=== PATIENT | male | born 1965 ===

== ENCOUNTER 2017-12-18 15:11 | Emergency (ER) | payer OTHER ==
[2017-12-18 16:00] VITALS: BP 137/69; PULSE 69; RESP 16; TEMP 98.8; O2SAT 99
[2017-12-18] MEDS ORDERED: Sodium Chloride 0.9% 1,000 ML IV STA (16:24)
[2017-12-18] MEDS ORDERED: Alum-Mag Hydrox-Simethicone Susp (30 mL) PO STA (16:35)
--- NOTE | 2017-12-18 16:40 | ED PDOC ---
HPI: Abdomen Time Seen by Provider: 12/18/17 16:23 Chief Complaint (Nursing): Abdominal Pain Chief Complaint (Provider): Epigastric pain, 5 days History Per: Patient History/Exam Limitations: no limitations Onset/Duration Of Symptoms: Days Outside of [place] travel?: No Current Symptoms Are (Timing): Still Present Severity: Severe Pain Scale Rating Of: 9 Location Of Pain/Discomfort: Epigastric Additional Complaint(s): 52 yo male with no medical problems present with epigatric pain which wraps around both sides to the back for 5 days. Pt denies similar in the past. Pt denies N/V/D, SOB, chest pain or palpitations. Pt took motrin twice for pain but states it did not help. Pt smokes, reports drinking every weekend. Past Medical History Reviewed: Historical Data, Nursing Documentation, Vital Signs Vital Signs: Last Vital Signs Temp 98.8 F 12/18/17 15:57 Pulse 69 12/18/17 15:57 Resp 16 12/18/17 15:57 BP 137/69 12/18/17 15:57 Pulse Ox 99 12/18/17 17:09 - Medical History PMH: No Chronic Diseases Denies: Chronic Kidney Disease - Surgical History Surgical History: Hernia Repair (Right inguinal ) - Family History Family History: States: Unknown Family Hx - Home Medications Home Medications: Ambulatory Orders Medication Instructions Recorded Famotidine [Pepcid] 20 mg PO BID #28 tab 12/18/17 - Allergies Allergies/Adverse Reactions: Allergies Allergy/AdvReac Type Severity Reaction Status Date / Time No Known Allergies Allergy Verified 12/18/17 15:56 Review of Systems ROS Statement: Except As Marked, All Systems Reviewed And Found Negative Constitutional: Negative for: Fever, Chills Cardiovascular: Negative for: Chest Pain, Palpitations Respiratory: Negative for: Cough, Shortness of Breath Gastrointestinal: Positive for: Abdominal Pain. Negative for: Nausea, Vomiting , Diarrhea, Constipation Genitourinary Male: Negative for: Dysuria Physical Exam - Reviewed Nursing Documentation Reviewed: Yes Vital Signs Reviewed: Yes - Physical Exam Appears: Positive for: Well, Non-toxic, No Acute Distress Head Exam: Positive for: ATRAUMATIC, NORMAL INSPECTION, NORMOCEPHALIC Skin: Positive for: Normal Color, Warm, DRY Eye Exam: Positive for: Normal appearance ENT: Positive for: Normal ENT Inspection Neck: Positive for: Normal, Painless ROM Cardiovascular/Chest: Positive for: Regular Rate, Rhythm Respiratory: Positive for: CNT, Normal Breath Sounds Gastrointestinal/Abdominal: Positive for: Bowel Sounds, Soft, Tenderness ( Diffuse, more severe epigastric ). Negative for: Normal Exam Back: Positive for: Normal Inspection Extremity: Positive for: Normal ROM Neurologic/Psych: Positive for: Alert, Oriented - Laboratory Results Result Diagrams: 12/18/17 17:34 12/18/17 17:34 - ECG O2 Sat by Pulse Oximetry: 99 Pulse Ox Interpretation: Normal Medical Decision Making Medical Decision Making: PT reports feeling better on re-evaluation. Disposition - Clinical Impression Clinical Impression: Gastritis - Patient ED Disposition Is Patient to be Admitted: No Counseled Patient/Family Regarding: Diagnosis, Need For Followup - Disposition Disposition: Routine/Home Disposition Time: 20:07 Condition: GOOD Prescriptions: Famotidine [Pepcid] 20 mg PO BID #28 tab Instructions: Gastritis (ED) Forms: [facility] (Wolof) Print Language: INDONESIAN
[2017-12-18] MEDS ORDERED: Alum-Mag Hydrox-Simethicone Susp (30 mL) ONE (17:12)
[2017-12-18 17:39] LABS: BASO % 0.5 % (0.0-2.0); EOS # 0.2 K/uL (0.0-0.7); HEMOGLOBIN 14.3 g/dL (12.0-18.0); LYMPH # 3.1 K/uL (1.0-4.3); LYMPH % 37.9 % (20.0-40.0); MEAN CELL VOLUME 79.5 fl (80.0-94.0); MEAN CORPUSCULAR HEMOGLOBIN 25.4 pg (27.0-31.0); MEAN CORPUSCULAR HGB CONC 31.9 g/dL (33.0-37.0); MEAN PLATELET VOLUME 8.9 fl (7.2-11.7); MONO # 0.7 K/uL (0.0-0.8); MONO % 8.3 % (0.0-10.0); NEUT # 4.3 K/uL (1.8-7.0); NEUT % 51.3 % (50.0-75.0); NRBC % 0.1 % (0.0-0.0); RBC 5.65 Mil/uL (4.40-5.90); RED CELL DISTRIBUTION WIDTH 14.5 % (11.5-14.5); WHITE BLOOD COUNT 8.3 K/uL (4.8-10.8)
[2017-12-18 17:53] LABS: ALB/GLOB RATIO 1.4 (1.0-2.1); ALT/SGPT 40 U/L (21-72); AST/SGOT 24 U/L (17-59); BLOOD UREA NITROGEN 15 mg/dl (9-20); CALCIUM 9.3 mg/dL (8.4-10.2); GFR AFRICAN-AMERICAN > 60; GFR NON-AFRICAN AMERICAN > 60; LIPASE 66 U/L (23-300)
[2017-12-18 17:54] LABS: URINE BILIRUBIN NEGATIVE (NEGATIVE); URINE BLOOD NEGATIVE (NEGATIVE); URINE CLARITY SLIGHTY-CLOUDY (Clear); URINE COLOR YELLOW (YELLOW); URINE GLUCOSE (UA) NEG (Normal); URINE LEUKOCYTE ESTERASE NEG Leu/uL (Negative); URINE NITRATE NEGATIVE (NEGATIVE); URINE PROTEIN NEGATIVE (NEGATIVE); URINE UROBILINOGEN 0.2-1.0 mg/dL (0.2-1.0)
[2017-12-18 17:57] LABS: INR 0.9 (0.9-1.2); PARTIAL THROMBOPLASTIN TIME 33.8 Seconds (25.6-37.1); PROTHROMBIN TIME 10.4 Seconds (9.8-13.1)
--- NOTE | 2017-12-18 18:52 | US ---
HISTORY: epigastric pain COMPARISON: None available. TECHNIQUE: Sonographic evaluation of the right upper quadrant of the abdomen. FINDINGS: LIVER: Measures 15.7 cm in length and appears unremarkable. No focal hepatic mass identified. The main portal vein appears patent with normal directional flow. No intrahepatic bile duct dilatation. GALLBLADDER: Contracted gallbladder state precludes adequate evaluation. Gallbladder wall measures approximately 3 mm. Negative sonographic Lizama's sign as assessed by the enrollment consultant. COMMON BILE DUCT: Measures 4 mm. PANCREAS: Not well-visualized. RIGHT KIDNEY: Measures 11.7 x 4.2 x 4.4 cm. No obstructing calculus or hydronephrosis identified. AORTA: Limited visualization appears grossly unremarkable. IVC: Limited visualization appears grossly unremarkable. OTHER FINDINGS: None . IMPRESSION: Contracted gallbladder state precludes adequate evaluation. Gallbladder wall measures approximately 3 mm. Negative sonographic Lizama's sign as assessed by the enrollment consultant.
--- NOTE | 2017-12-19 11:07 | CARD ---
APPROVED REPORT EKG Measurement Heart [id number] <Conclusion> Normal sinus rhythm Normal ECG
== END 2017-12-18 20:40 | disposition home or self-care (01) ==
LOC: H.ER 15:11
DX: K29.70 Gastritis, unspecified, without bleeding (principal)
CPT/HCPCS: 76705; 80053; 80320; 81003; 83690; 84484; 85025; 85610; 85730; 93005; 96360; 99282; J2405; J7040